=== PATIENT | female | born 2000 | race African-American/Black ===

== ENCOUNTER 2020-01-30 08:49 | Emergency (ER) | payer MEDICAID ==
[~2020-01-30] VITALS: Ht 152.4 cm; Wt 89.0 kg
[2020-01-30] MEDS ORDERED: ALBU18HF2 IH (08:58)
[2020-01-30] MEDS ORDERED: ALBUTEROL (0.083%) 2.5MG/3ML NEB HHN STA (10:18)
[2020-01-30] MEDS ORDERED: PREDNISONE 20MG TABLET PO STA (10:18)
[2020-01-30] MEDS ORDERED: IPRATROPIUM BROMIDE (0.02%) 0.5MG/2.5ML NEB HHN STA (10:18)
[2020-01-30 12:09] VITALS: BP 120/58
== END 2020-01-30 12:09 | disposition home or self-care (01) ==
LOC: ER 08:49
DX: J45.901 Unspecified asthma with (acute) exacerbation (principal); Z76.0 Encounter for issue of repeat prescription
CPT/HCPCS: 71045; 81025; 94644; 99285; J7512; Z7610